=== PATIENT | male | born 1945 | race Two or more races ===

== ENCOUNTER 2021-01-02 13:22 | Inpatient (IN) | payer MEDICARE, MEDICAID ==
[~2021-01-02] VITALS: Ht 165.1 cm; Wt 99.8 kg
[2021-01-02] MEDS ORDERED: METOPROLOL (13:23)
[2021-01-02] MEDS ORDERED: LORAZEPAM 2MG/ML CPJ IV ONE (14:00)
[2021-01-02] MEDS ORDERED: SODIUM CHLORIDE 0.9% 100 ML IV ONE (14:00)
[2021-01-02 16:39] LABS: BASOPHILS % 1.1 % (0.0-2.0); EOSINOPHILS % 2.7 % (0.0-5.0); HEMATOCRIT. 46.5 % (42.0-52.0); HEMOGLOBIN. 15.7 g/dL (14.0-18.0); LYMPHOCYTES % 42.7 % (20.0-50.0); MEAN CORPUSCULAR HEMOGLOBIN 29.7 pg (28.0-32.0); MEAN CORPUSCULAR VOLUME 87.9 fL (80.0-94.0); MEAN PLATELET VOLUME 7.1 fl (7.4-10.4); MONOCYTES % 9.5 % (2.0-8.0); PLATELET 217 x1000/uL (130-400); RED BLOOD CELL COUNT 5.29 mill/uL (4.7-6.1); RED CELL DISTRIBUTION WIDTH 14.4 % (11.6-14.6)
[2021-01-02 16:40] LABS: CHLORIDE 110 mEq/L (98-107)
[2021-01-02] MEDS ORDERED: LISINOPRIL 10MG TABLET PO ONE (17:45)
[2021-01-02] MEDS ORDERED: LORAZEPAM 1MG TABLET PO ONE (20:15)
[2021-01-02 22:25] VITALS: BP 134/78
[2021-01-02] MEDS ORDERED: MECL-159 PO (23:25)
[2021-01-02] MEDS ORDERED: EMPA25TA PO (23:25)
[2021-01-02] MEDS ORDERED: ASPI-1406 PO (23:25)
[2021-01-02] MEDS ORDERED: MELO-106 PO (23:25)
[2021-01-02] MEDS ORDERED: EZET10TA13 PO (23:25)
[2021-01-02] MEDS ORDERED: ESOM20CA PO (23:25)
[2021-01-02] MEDS ORDERED: LISI10TA26 PO (23:25)
[2021-01-02] MEDS ORDERED: TAMS-11 PO (23:25)
[2021-01-02] MEDS ORDERED: FINA1TAB18 PO (23:25)
[2021-01-02] MEDS ORDERED: ALPRAZOLAM 0.5 MG TABLET PO PRN (23:30)
[2021-01-03] VITALS: BP 106/64
[2021-01-03] MEDS ORDERED: MECLIZINE 25MG TABLET PO PRN
[2021-01-03] MEDS ORDERED: DEXTROSE 50% WATER 50ML SYRINGE IV PRN
[2021-01-03 04:00] VITALS: BP 129/82
[2021-01-03] MEDS ORDERED: *PATIENT'S OWN MEDICATION STORAGE XX SCH (05:30)
[2021-01-03] MEDS: BLOOD SUGAR DIAGNOSTIC STRIP TEST SCH ×3 (07:03→17:20)
[2021-01-03] MEDS ORDERED: OMEPRAZOLE 20MG CAPSULE EXTENDED RELEASE PO SCH (07:20)
[2021-01-03 08:00] VITALS: BP 136/79
[2021-01-03] MEDS ORDERED: FINASTERIDE 5MG TABLET PO SCH (09:00)
[2021-01-03] MEDS ORDERED: ASPIRIN 81MG TABLET PO SCH (09:00)
[2021-01-03] MEDS ORDERED: TAMSULOSIN HCL 0.4MG SR CAPSULE PO SCH (09:00)
[2021-01-03] MEDS ORDERED: LISINOPRIL 10MG TABLET PO SCH (09:00)
[2021-01-03] MEDS: INSULIN LISPRO 100 UNITS/ML SUBCUT SCH ×3 (10:46→17:50)
[2021-01-03 12:00] VITALS: BP 141/76
[2021-01-03 12:08] LABS: BASOPHILS % 0.4 % (0.0-2.0); EOSINOPHILS % 2.2 % (0.0-5.0); HEMOGLOBIN. 15.5 g/dL (14.0-18.0); LYMPHOCYTES % 27.5 % (20.0-50.0); MEAN CORPUSCULAR HEMOGLOBIN 29.8 pg (28.0-32.0); MEAN CORPUSCULAR VOLUME 88.3 fL (80.0-94.0); MEAN PLATELET VOLUME 7.1 fl (7.4-10.4); NEUTROPHILS % 58.9 % (40.0-76.0); PLATELET 228 x1000/uL (130-400); RED BLOOD CELL COUNT 5.21 mill/uL (4.7-6.1); RED CELL DISTRIBUTION WIDTH 14.5 % (11.6-14.6)
[2021-01-03 16:00] VITALS: BP 133/83
[2021-01-03] MEDS ORDERED: ATORVASTATIN CALCIUM 20MG TABLET PO SCH (21:00)
== END 2021-01-03 20:12 | disposition left against medical advice (07) | DRG 74 ==
LOC: ER 13:22 → 6WST 17:34 → ENRESERV 19:57
PROVIDERS: ADMIT Internal Medicine; ATTEND Internal Medicine
DX: G90.8 Other disorders of autonomic nervous system (principal); E11.9 Type 2 diabetes mellitus without complications; E66.9 Obesity, unspecified; E87.8 Other disorders of electrolyte and fluid balance, not elsewhere classified; D32.0 Benign neoplasm of cerebral meninges; I10 Essential (primary) hypertension; Z71.3 Dietary counseling and surveillance; Z79.82 Long term (current) use of aspirin; Z79.899 Other long term (current) drug therapy; Z68.36 Body mass index [BMI] 36.0-36.9, adult
CPT/HCPCS: 36415; 70551; 80048; 80053; 80061; 82962; 83036; 83880; 84484; 85025; 93005; 99285; J1815; J2060; J7050